=== PATIENT | female | born 2000 | race Caucasian/White ===

== ENCOUNTER 2023-03-02 11:28 | Emergency (ER) | payer MEDICAID, SELFPAY ==
[2023-03-02 11:36] VITALS: BP 143/92; PULSE 127; RESP 20; TEMP 37.4; O2SAT 100
--- NOTE | 2023-03-02 11:44 | ED.GENADULT ---
HPI - General Adult General Chief complaint: Urogenital-Female Stated complaint: Test Time Seen by Provider: 03/02/23 11:55 Source: patient and RN notes reviewed Mode of arrival: ambulatory Limitations: no limitations History of Present Illness HPI narrative: 23-year-old female presents concern for positive urine test at home. Reports she took the test yesterday. Reports her last menstrual period was mid January. She denies any abnormal bleeding, abdominal pain, or other concerning symptoms. MD complaint: test Related Data Home Medications Medication Instructions Recorded Confirmed buspirone 15 mg tablet 15 mg PO BID 03/02/23 03/02/23 hydroxyzine HCl 25 mg tablet 25 mg PO TID 03/02/23 03/02/23 trazodone 50 mg tablet 50 mg PO BID 03/02/23 03/02/23 Allergies Allergy/AdvReac Type Severity Reaction Status Date / Time No Known Allergies Allergy Verified 03/02/23 11:44 Review of Systems Review of Systems: CONSTITUTIONAL: Denies malaise, chills, sweats, or fever. CARDIOVASCULAR: Denies chest pain, palpitations, or edema. RESPIRATORY: Denies cough or dyspnea. GASTROINTESTINAL: Denies abdominal pain, nausea, vomiting, diarrhea GENITOURINARY: Denies abnormal vaginal bleeding, dysuria, frequency, urgency, suprapubic pressure. Denies flank pain or hematuria. SKIN: Denies rash or itching. MUSCULOSKELETAL: Denies back pain or myalgia. All systems reviewed & are unremarkable except as noted in HPI and below PMFSH Comments At time of signature, agree with nursing past medical, surgical, social and family history. There is no relevant family history pertinent to the presenting complaint Exam Narrative: GENERAL: Well-appearing, well-nourished, and in no acute distress. HEAD: Normocephalic. EYES: PERRLA, conjunctivae clear. NECK: Supple. No lymphadenopathy CHEST: Clear to auscultation. No respiratory distress. HEART: Regular rate and rhythm. SKIN: Warm, dry, no rash. NEURO: Alert and oriented x3. PSYCH: Normal mood and affect Course Course Emergency Course: Patient is aware of diagnosis, understands and agrees to treatment plan. Anticipatory guidance given. Patient agrees to follow-up as directed and is aware of reasons to seek care at the emergency department. Portions of this record may have been created with voice recognition software Level of Care: Express Care Visit Vital Signs Vital signs: Vital Signs Temperature 99.3 F 03/02/23 11:36 Pulse Rate 127 H 03/02/23 11:36 Respiratory Rate 20 03/02/23 11:36 Blood Pressure 143/92 H 03/02/23 11:36 Pulse Oximetry 100 03/02/23 11:36 Oxygen Delivery Room Air 03/02/23 11:36 Temperature 99.3 F 03/02/23 11:36 Pulse Rate 127 H 03/02/23 11:36 Respiratory Rate 20 03/02/23 11:36 Blood Pressure 143/92 H 03/02/23 11:36 Pulse Oximetry 100 03/02/23 11:36 Oxygen Delivery Room Air 03/02/23 11:36 Reviewed. Medical Decision Making Vital Signs Vital Signs: Vital Signs Temperature 99.3 F 03/02/23 11:36 Pulse Rate 127 H 03/02/23 11:36 Respiratory Rate 20 03/02/23 11:36 Blood Pressure 143/92 H 03/02/23 11:36 Pulse Oximetry 100 03/02/23 11:36 Oxygen Delivery Room Air 03/02/23 11:36 Temperature 99.3 F 03/02/23 11:36 Pulse Rate 127 H 03/02/23 11:36 Respiratory Rate 03/02/23 11:36 Blood Pressure 143/92 H 03/02/23 11:36 Pulse Oximetry 03/02/23 11:36 Oxygen Delivery Room Air 03/02/23 11:36 Critical Care Time Critical Care Time Critical Care Time: No Discharge Plan Discharge Clinical Impression: Positive urine test Patient Disposition: Home, Self-Care Condition: Stable Instructions: (ED) Additional Instructions: 1) Please follow-up with your OBGYN in the next 3-5 days. 2) If you have any urgent concerns please go to the ER. 3) Please take medications as prescribed. 4) Please read and follow information incl
== END 2023-03-02 12:07 | disposition home or self-care (01) ==
PROVIDERS: Emergency Provider Nurse Practitioner; PCP Physician Assistant
DX: Z32.01 Encounter for pregnancy test, result positive (principal); O99.340 Other mental disorders complicating pregnancy, unspecified trimester; Z3A.00 Weeks of gestation of pregnancy not specified; F41.9 Anxiety disorder, unspecified
CPT/HCPCS: 81003; 81025; 87086; 87088; 99213; G0463

== ENCOUNTER 2023-03-13 10:15 | Emergency (ER) | payer MEDICAID, SELFPAY ==
--- NOTE | ~2023-03-13 | US_ITS ---
EXAMINATION: US OB <=14 wk fetus w TV DATE: 03/13/2023 13:48 INDICATION: Retained products of conception. Miscarriage. TECHNIQUE: Real-time transabdominal and transvaginal pelvic ultrasound was performed. COMPARISON: None. FINDINGS: TRANSABDOMINAL ULTRASOUND: The uterus measures 6.9 x 4.2 x 5.4 cm. TRANSVAGINAL ULTRASOUND: The endometrial complex measures 6 mm in thickness. The right ovary measures 2.3 x 1.9 x 2.4 cm. The left ovary measures 2.2 x 1.7 x 2.2 cm. There is normal vascular flow in the ovaries. There is no free fluid in the pelvis. IMPRESSION: 1. Normal pelvis. No evidence of retained products of conception. Reviewed, dictated and finalized at location [facility]. [facility]
[2023-03-13 10:59] VITALS: BP 128/90; PULSE 115; RESP 18; TEMP 37.1; O2SAT 98
[2023-03-13 11:23] LABS: Basophils Absolute Auto 0.1 K/mm3 (0.0-0.1); Basophils Percent Auto 0.6 % (0.2-1.2); Eosinophils Absolute Auto 0.1 K/mm3 (0-0.3); Eosinophils Percent Auto 1.4 % (0-4.4); Hematocrit 45.8 % (37.0-47.0); Hemoglobin 15.8 g/dL (12.0-15.0); Immature Granulocyte Absolute 0.03 K/mm3 (0.00-0.031); Immature Granulocyte Percent A 0.4 % (0-0.5); Lymphocytes Absolute Auto 1.35 K/mm3 (0.9-3.2); Mean Corpuscular HGB Conc 34.5 g/dl (32-36); Mean Corpuscular Hemoglobin 31.8 pg (26-34); Mean Corpuscular Volume 92.2 fl (80-100); Mean Platelet Volume 9.2 fl (7.4-10.4); Monocytes Absolute Auto 0.6 K/mm3 (0.1-0.6); Monocytes Percent Auto 7.1 % (2.6-8.5); Neutrophils Absolute Auto 5.8 K/mm3 (1.3-6.7); Neutrophils Percent Auto 73.5 % (45.5-73.1); Platelet Count Result 307 k/mm3 (150-375); Red Blood Count 4.97 M/mm3 (4.2-5.4); Red Cell Distribution Width 12.2 % (11.5-14.5); White Blood Count 7.9 K/mm3 (4.5-10.0)
[2023-03-13 11:49] LABS: Beta HCG Quantitative 76.39 mIU/ML
--- NOTE | 2023-03-13 12:35 | ED.GENADULT ---
HPI - General Adult General Chief complaint: Vaginal Bleeding Stated complaint: miscarriage Time Seen by Provider: 03/13/23 13:56 History of Present Illness HPI narrative: Focused HPI: 1235 Charu Miller is a 23 y/o female who is presents with reports of being diagnosed with threatened miscarriage at [facility] yesterday - pt states she was about 6-7 weeks. She presents today with reports of having passed large clots last night that continued and she had to pull out the clots and still having vaginal bleeding/ cramping today. GENERAL: Well-appearing, well-nourished, and in no acute distress. HEAD: Normocephalic, atraumatic. CHEST: Clear to auscultation. ?No respiratory distress. HEART: Regular rate and rhythm.? NEURO: ?Alert and oriented x3. Patient screened in triage and initial orders placed.? ?Additional care and disposition to be based upon?diagnostic testing and treatment. Related Data Home Medications Medication Instructions Recorded Confirmed buspirone 15 mg tablet 15 mg PO BID 03/02/23 03/02/23 hydroxyzine HCl 25 mg tablet 25 mg PO TID 03/02/23 03/02/23 trazodone 50 mg tablet 50 mg PO BID 03/02/23 03/02/23 Allergies Allergy/AdvReac Type Severity Reaction Status Date / Time No Known Allergies Allergy Verified 03/13/23 10:16 Course Vital Signs Vital signs: Vital Signs Temperature 37.1 C 03/13/23 10:59 Pulse Rate 115 H 03/13/23 10:59 Respiratory Rate 18 03/13/23 10:59 Blood Pressure 128/90 03/13/23 10:59 Pulse Oximetry 98 03/13/23 10:59 Oxygen Delivery Room Air 03/13/23 10:59 Temperature 37.1 C 03/13/23 10:59 Pulse Rate 95 03/13/23 14:55 Respiratory Rate 20 03/13/23 14:55 Blood Pressure 131/74 03/13/23 14:55 Pulse Oximetry 99 03/13/23 14:55 Oxygen Delivery Room Air 03/13/23 10:59 Medical Decision Making Vital Signs Vital Signs: Vital Signs Temperature 37.1 C 03/13/23 10:59 Pulse Rate 115 H 03/13/23 10:59 Respiratory Rate 18 03/13/23 10:59 Blood Pressure 128/90 03/13/23 10:59 Pulse Oximetry 98 03/13/23 10:59 Oxygen Delivery Room Air 03/13/23 10:59 Temperature 37.1 C 03/13/23 10:59 Pulse Rate 95 03/13/23 14:55 Respiratory Rate 20 03/13/23 14:55 Blood Pressure 131/74 03/13/23 14:55 Pulse Oximetry 99 03/13/23 14:55 Oxygen Delivery Room Air 03/13/23 10:59 Lab Data 03/13/23 11:12 Labs: Lab Results 03/13/23 Range/Units 11:12 WBC 7.9 (4.5-10.0) K/mm3 RBC 4.97 (4.2-5.4) M/mm3 Hgb 15.8 H (12.0-15.0) g/dL Hct 45.8 (37.0-47.0) % MCV 92.2 (80-100) fl MCH 31.8 (26-34) pg MCHC 34.5 (32-36) g/dl RDW 12.2 (11.5-14.5) % Plt Count 307 (150-375) k/mm3 MPV 9.2 (7.4-10.4) fl Immature Gran % (Auto) 0.4 (0-0.5) % Neut % (Auto) 73.5 H (45.5-73.1) % Lymph % (Auto) 17.0 L (18.3-44.2) % [place] % (Auto) 7.1 (2.6-8.5) % Eos % (Auto) 1.4 (0-4.4) % Baso % (Auto) 0.6 (0.2-1.2) % Lymph # (Auto) 1.35 (0.9-3.2) K/mm3 [place] # (Auto) 0.6 (0.1-0.6) K/mm3 Eos # (Auto) 0.1 (0-0.3) K/mm3 Baso # (Auto) 0.1 (0.0-0.1) K/mm3 Abs Immat Gran (auto) 0.03 (0.00-0.031) K/mm3 Absolute Neuts (auto) 5.8 (1.3-6.7) K/mm3 Absolute Nucleated RBC 0.0 (0.0-0.012) K/mm3 Nucleated RBC % 0.0 (0.0-0.2) % Beta HCG, Quant 76.39 mIU/ML Blood Type O Positive Antibody Screen Negative Screen Not Reportable Baby's Blood Type Not Reportable Baby's ASHLEIGH Not Reportable Doses of RhIg Required 0 Discharge Plan Discharge Clinical Impression: Complete Patient Disposition: Home, Self-Care Condition: Stable Instructions: Miscarriage (ED) Additional Instructions: call your OBGYN for follow-up Bed rest Encourage fluid intake Prescriptions: No Action trazodone 50 mg tablet 50 mg PO BID hydroxyzine HCl 25 mg tablet 25 mg PO TID buspirone 15 mg tablet 15 mg PO BID vi
--- NOTE | 2023-03-13 13:57 | ED.FEMALEGU ---
HPI - Female Genitourinary General Chief complaint: Vaginal Bleeding Stated complaint: miscarriage Time Seen by Provider: 03/13/23 13:56 Source: patient and family Mode of arrival: ambulatory Limitations: no limitations History of Present Illness HPI Narrative: 23 years old white female, 4-6 weeks , start have vaginal bleeding the humeral abdominal cramps 5 days ago, fresh red prior blood, later brownish blood, was seen at [place] emergency room yesterday and was discharged with a diagnosis of threatened , this morning patient passed large blood clot and was concerned came to our emergency room for further evaluation. She denies any active bleeding at this time or abdominal pain. Her hCG yesterday was 123.86. Related Data Home Medications Medication Instructions Recorded Confirmed buspirone 15 mg tablet 15 mg PO BID 03/02/23 03/02/23 hydroxyzine HCl 25 mg tablet 25 mg PO TID 03/02/23 03/02/23 trazodone 50 mg tablet 50 mg PO BID 03/02/23 03/02/23 Allergies Allergy/AdvReac Type Severity Reaction Status Date / Time No Known Allergies Allergy Verified 03/13/23 10:16 Review of Systems Review of Systems: All systems reviewed & are unremarkable except as noted in HPI and below Exam Narrative: General appearance: Well-developed, well-nourished Skin: Normal color Head: Normocephalic, nontraumatic Eyes: Clear conjunctiva ENT: Oropharynx normal, ears normal, nose normal Neck: Supple, nontender Chest and respiratory: Airway patent, no respiratory distress, no accessory muscle use Heart: Regular rate/rhythm Abdomen: Soft, nontender, no organomegaly, quiet bowel sounds Vascular: Normal peripheral pulses, normal capillary refill. Musculoskeletal: Normal range of motion, nontender back Neurologic: Alert and oriented ?3, [employer] is normal as tested, no gross motor deficit : Speculum Exam - Vagina: normal appearance of the vagina and vaginal bleeding ( scant brownish vaginal bleed around the cervix, closed os, no tenderness, ) Speculum Exam - Cervix: normal appearance of the cervix and Cervical os closed Bimanual Exam- Adnexa, other: no masses Course Vital Signs Vital signs: Vital Signs Temperature 37.1 C 03/13/23 10:59 Pulse Rate 115 H 03/13/23 10:59 Respiratory Rate 18 03/13/23 10:59 Blood Pressure 128/90 03/13/23 10:59 Pulse Oximetry 98 03/13/23 10:59 Oxygen Delivery Room Air 03/13/23 10:59 Temperature 37.1 C 03/13/23 10:59 Pulse Rate 94 03/13/23 13:58 Respiratory Rate 17 03/13/23 13:58 Blood Pressure 132/96 H 03/13/23 13:58 Pulse Oximetry 100 03/13/23 13:58 Oxygen Delivery Room Air 03/13/23 10:59 MDM - Female Genitourinary MDM Narrative Medical decision making narrative: complete is my concern. Patient hCG yesterday was 123.86, today is 73, repeated pelvic ultrasound today showed no intrauterine retained products of contraception. Pelvic exam showed scant brownish blood, no tenderness, no active bleeding, no blood clots. Patient has appointment with her OBGYN at [facility] in 3 days Differential Diagnosis Differential diagnosis: Likely other ( miscarriage, threatened ,) Medical Records Attestation: I reviewed the patient's medical records. Lab Data Attestation: I reviewed the patient's lab results. 03/13/23 11:12 Labs: Lab Results 03/13/23 Range/Units 11:12 WBC 7.9 (4.5-10.0) K/mm3 RBC 4.97 (4.2-5.4) M/mm3 Hgb 15.8 H (12.0-15.0) g/dL Hct 45.8 (37.0-47.0) % MCV 92.2 (80-100) fl MCH 31.8 (26-34) pg MCHC 34.5 (32-36) g/dl RDW 12.2 (11.5-14.5) % Plt Count 307 (150-375) k/mm3 MPV 9.2 (
[2023-03-13 13:58] VITALS: BP 132/96; PULSE 94; RESP 17; O2SAT 100
[2023-03-13 14:55] VITALS: BP 131/74; PULSE 95; RESP 20; O2SAT 99
== END 2023-03-13 15:10 | disposition home or self-care (01) ==
PROVIDERS: Emergency Medicine; Emergency Provider Emergency Medicine; PCP Physician Assistant
DX: O03.9 Complete or unspecified spontaneous abortion without complication (principal)
CPT/HCPCS: 36415; 76801; 76817; 84702; 85025; 85461; 86850; 86900; 86901; 99284